=== PATIENT | female | born 1990 | race Caucasian/White ===

== ENCOUNTER 2017-05-19 23:46 | Emergency (ER) | payer BC ==
[~2017-05-19] VITALS: Ht 160 cm; Wt 48.5 kg
[2017-05-19 23:53] VITALS: BP 146/89
[2017-05-20] MEDS ORDERED: PREDNISONE20 MG PO (00:34)
== END 2017-05-20 00:50 | disposition home or self-care (01) ==
LOC: EME 23:46
DX: T78.49XA Other allergy, initial encounter (principal); R06.02 Shortness of breath; J02.9 Acute pharyngitis, unspecified; R05 Cough
CPT/HCPCS: 99281; 99283; J7512